=== PATIENT | female | born 1980 | race Caucasian/White ===

== ENCOUNTER 2020-09-08 07:37 | Outpatient (CLI) | payer OTHER | END 2020-09-08 07:38 | disposition home or self-care (01) | LOC: CSHCT 07:37 | PROVIDERS: ATTEND Internal Medicine | DX: K59.04 Chronic idiopathic constipation (principal); R10.9 Unspecified abdominal pain; R13.10 Dysphagia, unspecified; K21.9 Gastro-esophageal reflux disease without esophagitis; R93.3 Abnormal findings on diagnostic imaging of other parts of digestive tract; Q76.49 Other congenital malformations of spine, not associated with scoliosis | CPT/HCPCS: 74177 ==

== ENCOUNTER 2023-12-06 19:16 | Emergency (ER) | payer BC | END 2023-12-06 20:32 | disposition home or self-care (01) | LOC: CSHERS 19:16 | DX: R05.3 Chronic cough (principal) | CPT/HCPCS: 71045; 93005 ==

== ENCOUNTER 2023-12-20 20:08 | Emergency (ER) | payer BC | END 2023-12-20 21:35 | disposition home or self-care (01) | LOC: CSHERS 20:08 | DX: J42 Unspecified chronic bronchitis (principal) | CPT/HCPCS: 71046; 93005; 93010 ==

== ENCOUNTER 2024-02-27 13:48 | Emergency (ER) | payer BC ==
[2024-02-27 14:48] LABS: Bilirubin Neg (Negative); Blood, Urine Negative (Negative); Clarity Clear (Clear); Glucose, Urine (Dipstick) Normal (Negative); Ketone, Urine 5 mg/dL (Negative); Leukocyte 100 (Negative); Nitrite Negative (Negative); Protein, Urine (Dipstick) 30 mg/dl (Neg-Trace); Specific Gravity, Urine 1.025 (1.005-1.030); Urobilinogen Normal mg/dL (Less than 2)
[2024-02-27] MEDS ORDERED: fentaNYL 50 mcg/mL 1 mL Vial ONE (14:49)
[2024-02-27 15:01] LABS: #Basophils 0.07 10x3/uL (0.0-0.2); #Eosinphils 0.51 10x3/uL (0.0-0.5); #Neutrophils 5.26 10x3/uL (1.5-8.4); %Basophils 0.8 % (0.0-2.0); %Lymphocytes 23.2 % (18.0-47.0); %Monocytes 8.2 % (0.0-10.0); %Neutrophils 61.6 % (40.0-75.0); Hematocrit 39.8 % (34.9-44.5); Mean Corpuscular HGB CONC 32.7 g/dL (32.0-36.0); Mean Corpuscular Hemoglobin 29.1 pg (27.0-33.0); Mean Platelet Volume 9.9 fL (7.4-10.4); Platelet Count 395 10x3/uL (150-450); RBC Distribution Width 12.6 % (11.5-14.5); Red Blood Cell (RBC) Count 4.47 10x6/uL (3.90-5.03); White Blood Cell (WBC) Count 8.5 10x3/uL (3.5-10.5)
[2024-02-27 15:03] LABS: ALT (SGPT) 23 U/L (8-55); AST (SGOT) 20 U/L (5-34); Albumin 3.6 g/dL (3.5-5.0); Alkaline Phosphatase 73 U/L (40-110); Anion Gap 13 mmol/L (10-20); BHCG - Serum Negative (NEGATIVE); BUN (Urea Nitrogen) 12 mg/dL (7.0-18.7); Bilirubin, Total 0.3 mg/dL (0.2-1.2); Calc. Creatinine Clearance 0 mL/min (70-130); Calcium 9.4 mg/dL (7.8-10.44); Carbon Dioxide 23 mmol/L (22-29); Chloride 105 mmol/L (98-107); Estimated GFR 87; Globulin 3.3 g/dL (2.4-3.5); Glucose 80 mg/dL (70-105); Lipase 34 U/L (8-78); Potassium 3.7 mmol/L (3.5-5.1); Pregs Control Background? CLEAR/WHITE (CLR/WHITE); Pregs Control Bar Appear? YES (CONTROL BAR); Protein, Total 6.9 g/dL (6.0-8.3); Sodium 137 mmol/L (136-145)
[2024-02-27] MEDS ORDERED: Morphine 4 MG/ML VIAL ONE (15:35)
[2024-02-27] MEDS ORDERED: Piperacillin/Tazobactam 4.5 GM VIAL ONE (15:35)
[2024-02-27 15:50] LABS: RBC/HPF None Seen HPF (0-3)
[2024-02-27 15:51] LABS: Bacteria/HPF None Seen HPF (None Seen); CAUTI Indications for Culture Pelvic or flank pain; Mucous/LPF 4+ LPF (<2+); Squamous Epithelial 0-3 HPF (0-3); Urine Culture Reflex No No; WBC/HPF 0-3 HPF (0-3)
[2024-02-27] MEDS ORDERED: Ketorolac Tromethamine 30 MG (1 mL) VIAL ONE (16:51)
[2024-02-27] MEDS ORDERED: Acetaminophen 500 MG TAB ONE (17:31)
[2024-02-27] MEDS ORDERED: Bupivacaine/Epinephrine 0.25% 30 ML VIAL ONE (17:36)
[2024-02-27] MEDS ORDERED: SUCCINYLCHOLINE/SOD CL,ISO/PF 200 MG/10 ML SYRINGE FS ONE (17:46)
[2024-02-27] MEDS ORDERED: Rocuronium Bromide 10 MG/ML (10ML VIAL) ONE (17:46)
[2024-02-27] MEDS ORDERED: PROPOFOL 20 ML ONE (17:46)
[2024-02-27] MEDS ORDERED: HYDROmorphone 0.5 MG/0.5 ML SYRINGE ONE ×3 (18:01→19:20)
[2024-02-27] MEDS ORDERED: Morphine 10 MG/ML VIAL ONE (18:03)
[2024-02-27] MEDS ORDERED: Ondansetron PF 4 MG/2 ML Vial ONE (18:26)
[2024-02-27] MEDS ORDERED: Dexamethasone 4 mg/ml Vial ONE (18:26)
[2024-02-27] MEDS ORDERED: SUGAMMADEX SODIUM 200 MG/2 ML VIAL ONE (18:29)
[2024-02-27] MEDS ORDERED: Meperidine HCl/PF 25 MG (1 mL) VIAL ONE (19:08)
[2024-02-27] MEDS ORDERED: HYDROcodone/Acetaminophen 5/325 mg Tablet ONE (19:40)
== END 2024-02-27 18:08 | disposition admitted as inpatient to this hospital (09) ==
LOC: CSHERS 13:48
PROC: 0DTJ4ZZ Resection of Appendix, Percutaneous Endoscopic Approach (ICD-10-PCS; principal; 2024-02-27)
DX: K35.80 Unspecified acute appendicitis (principal); K38.8 Other specified diseases of appendix; R56.9 Unspecified convulsions; G43.909 Migraine, unspecified, not intractable, without status migrainosus; Z90.710 Acquired absence of both cervix and uterus; Z55.6 Problems related to health literacy; Z88.8 Allergy status to other drugs, medicaments and biological substances; Z91.041 Radiographic dye allergy status; Z79.899 Other long term (current) drug therapy; Z98.890 Other specified postprocedural states; F15.10 Other stimulant abuse, uncomplicated
CPT/HCPCS: 36415; 74176; 76705; 80053; 81001; 83605; 83690; 84703; 85025; 88304; 93005; 96374; 96375; A4649; C1713; J1100; J1170; J1885; J2175; J2270; J2272; J2405; J2543; J2704; J3010

== ENCOUNTER 2024-06-13 22:39 | Emergency (ER) | payer BC ==
[2024-06-13 23:20] LABS: #Basophils 0.08 10x3/uL (0.0-0.2); #Eosinophils 0.53 10x3/uL (0.0-0.5); #Monocytes 0.54 10x3/uL (0.0-1.1); #Neutrophils 4.71 10x3/uL (1.5-8.4); %Eosinophils 6.4 % (0.0-6.0); %Lymphocytes 29.1 % (18.0-47.0); %Monocytes 6.5 % (0.0-10.0); %Neutrophils 56.8 % (40.0-75.0); Hematocrit 40.9 % (34.9-44.5); Hemoglobin 13.9 g/dL (12.0-15.5); Mean Corpuscular Hemoglobin 29.7 pg (27.0-33.0); Mean Corpuscular Volume 87.4 fL (81.6-98.3); Mean Platelet Volume 9.8 fL (7.4-10.4); Platelet Count 450 10x3/uL (150-450); RBC Distribution Width 12.9 % (11.5-14.5); Red Blood Cell (RBC) Count 4.68 10x6/uL (3.90-5.03); White Blood Cell (WBC) Count 8.29 10x3/uL (3.5-10.5)
[2024-06-13 23:23] LABS: ALT (SGPT) 36 U/L (8-55); AST (SGOT) 26 U/L (5-34); Albumin 4.3 g/dL (3.5-5.0); Alkaline Phosphatase 87 U/L (40-110); Anion Gap 16 mmol/L (10-20); BUN (Urea Nitrogen) 11 mg/dL (7.0-18.7); Bilirubin, Total 0.4 mg/dL (0.2-1.2); Calc. Creatinine Clearance 0 mL/min (70-130); Calcium 10.1 mg/dL (7.8-10.44); Carbon Dioxide 26 mmol/L (22-29); Chloride 104 mmol/L (98-107); Estimated GFR 65; Globulin 3.8 g/dL (2.4-3.5); Glucose 92 mg/dL (70-105); Potassium 3.8 mmol/L (3.5-5.1); Protein, Total 8.1 g/dL (6.0-8.3); Sodium 142 mmol/L (136-145)
[2024-06-13 23:29] LABS: Troponin I Less than 0.010 ng/mL (< 0.028)
[2024-06-13 23:39] LABS: Bilirubin Neg (Negative); Blood, Urine Negative (Negative); Clarity Slightly Cloudy (Clear); Glucose, Urine (Dipstick) Normal (Negative); Ketone, Urine Negative (Negative); Leukocyte 25 (Negative); Nitrite Negative (Negative); Protein, Urine (Dipstick) Negative (Neg-Trace); Urobilinogen Normal mg/dL (Less than 2)
[2024-06-13 23:42] LABS: Pregnancy Test - Urine (BHCG) Negative (Negative)
[2024-06-13 23:43] LABS: Pregu Control Background? CLEAR/WHITE (CLR/WHITE); Pregu Control Bar Appear? YES (CONTROL BAR)
[2024-06-13 23:55] LABS: Bacteria/HPF 2+ HPF (None Seen); CAUTI Indications for Culture Pelvic or flank pain; RBC/HPF None Seen HPF (0-3); Squamous Epithelial 0-3 HPF (0-3); WBC/HPF 0-3 HPF (0-3)
[2024-06-13 23:57] LABS: Urine Culture Reflex No No
[2024-06-14] MEDS ORDERED: diphenhydrAMINE 50 MG/ML VIAL ONE (01:06)
[2024-06-14] MEDS ORDERED: Lorazepam 2 MG/ML VIAL ONE (01:06)
[2024-06-14] MEDS ORDERED: methylPREDNISolone Sod Succ 40 MG VIAL ONE (01:07)
[2024-06-14] MEDS ORDERED: Famotidine/PF 20 mg/2ml Vial ONE (01:07)
[2024-06-14] MEDS ORDERED: Iopamidol 370 76% 100 ML VIAL ONE (09:15)
== END 2024-06-14 07:38 | disposition home or self-care (01) ==
LOC: CSHERS 22:39
DX: R07.89 Other chest pain (principal)
CPT/HCPCS: 36415; 71045; 71275; 72125; 74174; 80053; 81001; 81025; 84484; 85025; 85379; 93005; 96374; 96375; J1200; J2060; J2919; J3490

== ENCOUNTER 2024-06-27 21:57 | Emergency (ER) | payer BC ==
[2024-06-27 22:51] LABS: #Basophils 0.08 10x3/uL (0.0-0.2); #Eosinophils 0.45 10x3/uL (0.0-0.5); #Monocytes 0.75 10x3/uL (0.0-1.1); #Neutrophils 5.32 10x3/uL (1.5-8.4); %Basophils 0.8 % (0.0-2.0); %Eosinophils 4.7 % (0.0-6.0); %Lymphocytes 31.1 % (18.0-47.0); %Monocytes 7.8 % (0.0-10.0); %Neutrophils 55.4 % (40.0-75.0); Hematocrit 38.2 % (34.9-44.5); Hemoglobin 12.9 g/dL (12.0-15.5); Mean Corpuscular HGB CONC 33.8 g/dL (32.0-36.0); Mean Corpuscular Volume 85.8 fL (81.6-98.3); Mean Platelet Volume 9.6 fL (7.4-10.4); Platelet Count 407 10x3/uL (150-450); RBC Distribution Width 12.5 % (11.5-14.5); Red Blood Cell (RBC) Count 4.45 10x6/uL (3.90-5.03); White Blood Cell (WBC) Count 9.61 10x3/uL (3.5-10.5)
[2024-06-27 23:08] LABS: BHCG - Serum Negative (NEGATIVE); Pregs Control Background? CLEAR/WHITE (CLR/WHITE); Pregs Control Bar Appear? YES (CONTROL BAR)
[2024-06-27 23:12] LABS: ALT (SGPT) 36 U/L (Less than 34); AST (SGOT) 35 U/L (11-34); Albumin 4.1 g/dL (3.1-4.5); Alkaline Phosphatase 76 U/L (40-110); Anion Gap 13 mmol/L (10-20); BUN (Urea Nitrogen) 13 mg/dL (7.0-18.7); Bilirubin, Total 0.3 mg/dL (0.3-1.2); Calc. Creatinine Clearance 0 mL/min (70-130); Calcium 9.6 mg/dL (7.8-10.44); Carbon Dioxide 23 mmol/L (22-29); Chloride 107 mmol/L (98-107); Estimated GFR 89; Globulin 3.2 g/dL (2.4-3.5); Glucose 88 mg/dL (70-105); Lipase 36 U/L (8-78); Magnesium 2.1 mg/dL (1.6-2.6); Potassium 3.9 mmol/L (3.5-5.1); Protein, Total 7.3 g/dL (6.0-8.3); Sodium 139 mmol/L (136-145)
[2024-06-27 23:18] LABS: Troponin I Less than 0.010 ng/mL (< 0.028)
[2024-06-28] MEDS ORDERED: methylPREDNISolone Sod Succ 40 MG VIAL ONE (00:51)
[2024-06-28] MEDS ORDERED: diphenhydrAMINE 50 MG/ML VIAL ONE (00:51)
[2024-06-28] MEDS ORDERED: Famotidine/PF 20 mg/2ml Vial ONE (00:51)
[2024-06-28] MEDS ORDERED: Acetaminophen 500 MG TAB ONE (01:17)
[2024-06-28] MEDS ORDERED: Iopamidol 300 61% 100 ML VIAL FS ONE (10:43)
== END 2024-06-28 05:40 | disposition home or self-care (01) ==
LOC: CSHERS 21:57
DX: R07.2 Precordial pain (principal); R10.30 Lower abdominal pain, unspecified
CPT/HCPCS: 36415; 71045; 74177; 80053; 83690; 83735; 84484; 84703; 85025; 85379; 93005; 96374; 96375; J1200; J2919; J3490